=== PATIENT | male | born 1965 | race Asian ===

== ENCOUNTER 2024-12-01 22:43 | Emergency (ER) | payer SELFPAY ==
[~2024-12-01] VITALS: Ht 182.9 cm; Wt 86.0 kg
[2024-12-01 22:54] VITALS: O2SAT 97
[2024-12-01 23:36] LABS: CLARITY URINE CLEAR (CLEAR); COLOR URINE YELLOW (YELLOW); GLUCOSE URINE NEGATIVE (NEGATIVE); KETONES URINE NEGATIVE (NEGATIVE); LEUKOCYTE ESTERASE URINE NEGATIVE (NEGATIVE); NITRITE URINE NEGATIVE (NEGATIVE); OCCULT BLOOD URINE NEGATIVE (NEGATIVE); PH URINE 7.0 (4.5-8.0); PROTEIN URINE NEGATIVE (NEGATIVE); SPECIFIC GRAVITY URINE 1.010 (1.005-1.030); UROBILINOGEN URINE 0.2 E.U./dL (0.2-1.0)
[2024-12-01 23:42] LABS: HEMATOCRIT. 38.4 % (42.0-52.0); HEMOGLOBIN. 12.4 g/dL (14.0-18.0); MEAN PLATELET VOLUME 9.5 fl (7.4-10.4); PLATELET 223 x1000/uL (130-400); RED BLOOD CELL COUNT 4.54 mill/uL (4.7-6.1); RED CELL DISTRIBUTION WIDTH 17.4 % (11.6-14.6)
[2024-12-01 23:54] LABS: *AMPHETAMINES SCREEN URINE NEGATIVE (NEGATIVE); *BARBITURATES SCREEN URINE NEGATIVE (NEGATIVE); *BENZODIAZEPINES SCREEN URINE NEGATIVE (NEGATIVE); *COCAINE SCREEN URINE NEGATIVE (NEGATIVE); CANNABINOID URINE SCREEN NEGATIVE (NEGATIVE); ECSTASY MDMA SCREEN URINE NEGATIVE (NEGATIVE); METHADONE URINE SCREEN NEGATIVE (NEGATIVE); OPIATES URINE SCREEN NEGATIVE (NEGATIVE); PHENCYCLIDINE URINE SCREEN NEGATIVE (NEGATIVE)
[2024-12-01 23:56] LABS: CREATININE 0.9 mg/dL (0.6-1.3)
[2024-12-01 23:57] LABS: ETHANOL BLOOD < 10 mg/dL (<10); UREA NITROGEN BLOOD 10 mg/dL (9-23)
[2024-12-01 23:58] LABS: ASPARTATE AMINOTRANSFERASE 9 IU/L (<34)
[2024-12-01 23:59] LABS: BILIRUBIN DIRECT < 0.1 mg/dL (<=3.0); BILIRUBIN TOTAL 0.3 mg/dL (0.1-1.0); PROTEIN TOTAL 7.2 g/dL (6.0-8.3)
[2024-12-02 00:37] LABS: LYMPHOCYTES % MANUAL 16.0 % (20.0-50.0); MONOCYTES % MANUAL 9.0 % (2.0-8.0); NEUTROPHILS % MANUAL 75.0 % (45.0-75.0); PLATELET ESTIMATE NORMAL
[2024-12-02] MEDS ORDERED: DIVALPROEX SODIUM 125MG SPRINKLE CAPSULE PO SCH (09:00)
[2024-12-02] MEDS: DIVALPROEX SODIUM 250MG DR TABLET PO SCH (10:51)
[2024-12-02] MEDS: LORAZEPAM 2MG/ML UD SYRINGE ONE (13:07)
[2024-12-02] MEDS: OLANZAPINE 10 MG/VIAL IM ONE (13:07)
[2024-12-02] MEDS: LORAZEPAM 1MG TABLET PO ONE (20:53)
[2024-12-03] MEDS: OLANZAPINE 10 MG/VIAL IM ONE ×2 (04:38→20:45)
[2024-12-03] MEDS: LORAZEPAM 2MG/ML UD SYRINGE IM NR (04:38)
[2024-12-03] MEDS: DIPHENHYDRAMINE 50MG/ML VIAL IM PRN (12:48)
[2024-12-03] MEDS: DIPHENHYDRAMINE 50MG/ML VIAL IM ONE (20:45)
[2024-12-03] MEDS: LORAZEPAM 2MG/ML UD SYRINGE IM SCH (21:00)
[2024-12-04] MEDS: LORAZEPAM 2MG/ML UD SYRINGE IM NR ×2 (02:20→17:33)
[2024-12-04] MEDS: OLANZAPINE 10 MG/VIAL IM NR (02:20)
[2024-12-04] MEDS: BENZTROPINE MESYLATE 1MG TABLET PO SCH (11:49)
[2024-12-04] MEDS ORDERED: DIPHENHYDRAMINE 50MG/ML VIAL IM PRN (17:30)
[2024-12-04] MEDS: HALOPERIDOL LACTATE 5MG/ML VIAL IM ONE (17:33)
[2024-12-05 06:00] VITALS: BP 144/92; PULSE 86; RESP 18; TEMP 36.9; O2SAT 99
== END 2024-12-05 09:56 ==
LOC: ER 22:43
DX: R45.851 Suicidal ideations (principal); E11.9 Type 2 diabetes mellitus without complications; F25.9 Schizoaffective disorder, unspecified; F31.9 Bipolar disorder, unspecified; F41.9 Anxiety disorder, unspecified; G40.909 Epilepsy, unspecified, not intractable, without status epilepticus; Z79.899 Other long term (current) drug therapy; Z88.8 Allergy status to other drugs, medicaments and biological substances; Z20.822 Contact with and (suspected) exposure to COVID-19
CPT/HCPCS: 80076; 80305; 80048; 81003; 80307; 80329; 80320; 85025; 36415; 99285; 87426; 96372 ×3; J3490 ×3; J2060 ×3; J1200 ×2; J1630; G0480